=== PATIENT | female | born 2000 | race Caucasian/White ===

== ENCOUNTER 2019-02-01 02:32 | Emergency (ER) | payer OTHER ==
[~2019-02-01] VITALS: Ht 157.4 cm; Wt 68.5 kg
--- NOTE | ~2019-02-01 | EKG ---
[place], [place] ELECTROCARDIOGRAM REPORT NAME: JOSH CARDONA UNIT #: [id number] ROOM: DOCTOR: EPIPHANY DRAFT REPORT BIRTHDATE: [birth year] [facility] Test Date: 2019-02-01 Test Time: 03:12:15 Pat Name: JOSH CARDONA Department: Room: Gender: F Administration Professional: : 2000 Requested By: BROWN DONOHUE Order Number: [id number] Reading MD: Esteban Centeno MD Measurements Intervals [place] Rate: 71 P: 42 [place]: 157 QRS: 50 QRSD: 88 T: 17 QT: 397 QTc: 432 Interpretive Statements Sinus rhythm Nonspecific ST T changes Electronically Signed On 02-01-2019 7:49:44 PDT by Esteban Centeno MD CM:EKGRPT:ELECTROCARDIOGRAM REPORT [id number] BROWN JOHNSON DRAFT REPORT BROWN DONOHUE DO
[2019-02-01 03:04] LABS: BILIRUBIN NEGATIVE (NEGATIVE); BLOOD 1+ (NEGATIVE); CLARITY CLEAR (CLEAR); COLOR YELLOW (YELLOW); GLUCOSE NEGATIVE (NEGATIVE); KETONE TRACE (NEGATIVE); LEUKO ESTERASE NEGATIVE (NEGATIVE); NITRITE NEGATIVE (NEGATIVE); SPECIFIC GRAVITY >= 1.030 (1.005-1.030)
[2019-02-01 03:09] LABS: BACTERIA 1+; MUCOUS TRACE; WBC 0-2 wbc/hpf (0-5)
== END 2019-02-01 04:57 | disposition home or self-care (01) ==
LOC: ED 02:32
PROVIDERS: Emergency Medicine
DX: G58.8 Other specified mononeuropathies (principal); R07.81 Pleurodynia; Z88.6 Allergy status to analgesic agent